=== PATIENT | female | born 1935 | race African-American/Black ===

== ENCOUNTER 2016-10-07 07:52 | Day surgery (SDC) | payer OTHER ==
[~2016-10-07 07:52] MED LIST: ACET650S25 PO; ASPI-518 PO; COR3 PO; KDUR20 PO; LEVO75TA PO
[2016-10-07] MEDS ORDERED: MIDAZOLAM HCL 2 MG/2 ML VIAL ONE ×2 (10:56→11:26)
[2016-10-07] MEDS ORDERED: LIDOCAINE HCL 1% 20ML VIAL (Pyxis) INJ ONE (10:56)
[2016-10-07] MEDS ORDERED: FENTANYL CITRATE/PF 50MCG/ML 2ML VIAL ONE (10:57)
[2016-10-07] MEDS ORDERED: IODIXANOL 320MG/ML 100 ML BOTTLE IV ONE (10:57)
[2016-10-07] MEDS ORDERED: HEPARIN SODIUM 1,000 UNIT/1ML VIAL IV ONE ×2 (11:19→11:49)
[2016-10-07] MEDS ORDERED: HYDROMORPHONE HCL/PF 2MG/ML (OR) ONE (11:30)
[2016-10-07] MEDS ORDERED: PROTAMINE SULFATE 10MG/ML VIAL 5ML IV ONE (12:03)
[2016-10-07] MEDS ORDERED: SACU1TAB PO (12:04)
[2016-10-07] MEDS ORDERED: FURO-151 PO (12:04)
[2016-10-07] MEDS ORDERED: SODIUM CHLORIDE 0.45% 1,000 ML IV ONE (12:15)
== END 2016-10-07 17:55 | disposition home or self-care (01) ==
LOC: CCL 07:52
PROVIDERS: ATTEND Specialist
DX: I25.10 Atherosclerotic heart disease of native coronary artery without angina pectoris (principal); I13.0 Hypertensive heart and chronic kidney disease with heart failure and stage 1 through stage 4 chronic kidney disease, or unspecified chronic kidney disease; E11.22 Type 2 diabetes mellitus with diabetic chronic kidney disease; E03.9 Hypothyroidism, unspecified; I27.2 Other secondary pulmonary hypertension; I50.9 Heart failure, unspecified; I42.9 Cardiomyopathy, unspecified; N18.9 Chronic kidney disease, unspecified; Z79.82 Long term (current) use of aspirin
CPT/HCPCS: 93458; 99152; 99153; C1726; C1760; C1769; C1887; C1893; J1170; J1644; J2250; J2720; J3010; J3490; Q9967

== ENCOUNTER 2018-02-14 20:41 | Inpatient (IN) | payer OTHER ==
[~2018-02-14] VITALS: Ht 167.6 cm; Wt 72.1 kg
[~2018-02-14 20:41] MED LIST changes: +FURO-151 PO; +SACU1TAB PO
[2018-02-14] MEDS ORDERED: NITROGLYCERIN OINT 1GM/INCH UDPKT TD ONE (22:45)
[2018-02-14] MEDS ORDERED: ASPIRIN 81MG TABLET PO ONE (22:45)
[2018-02-14] MEDS ORDERED: FUROSEMIDE 40MG/4ML VIAL IV ONE (22:45)
[2018-02-14 23:36] LABS: BASOPHILS % 0.6 % (0.0-2.0); EOSINOPHILS % 3.6 % (0.0-5.0); HEMATOCRIT. 34.7 % (36.0-48.0); HEMOGLOBIN. 11.6 g/dL (12.0-16.0); MEAN CORPUSCULAR HEMOGLOBIN 31.6 pg (28.0-32.0); MEAN CORPUSCULAR VOLUME 94.3 fL (81.0-99.0); MEAN PLATELET VOLUME 9.4 fl (7.4-10.4); MONOCYTES % 14.6 % (2.0-8.0); NEUTROPHILS % 49.2 % (40.0-76.0); PLATELET 162 x1000/uL (130-400); RED BLOOD CELL COUNT 3.68 mill/uL (4.2-5.4); RED CELL DISTRIBUTION WIDTH 14.8 % (11.6-14.6)
[2018-02-14 23:40] LABS: CHLORIDE 106 mEq/L (98-107)
[2018-02-14 23:47] LABS: INR 1.1; PARTIAL THROMBOPLASTIN TIME 27.1 sec (23.4-31.0); PROTHROMBIN TIME 11.2 sec (9.1-11.1)
[2018-02-15] MEDS: HYDROCODONE/ACETAMINOPHEN 5/325MG TABLET PO PRN ×2 (10:41→22:13)
[2018-02-15] MEDS ORDERED: ENOXAPARIN 40MG/0.4ML SYR SUBCUT SCH (11:30)
[2018-02-15] MEDS: FUROSEMIDE 40MG/4ML VIAL IVP SCH ×3 (11:30→18:58)
[2018-02-15] MEDS ORDERED: ONDANSETRON HCL 4MG/2ML INJ IV PRN (11:30)
[2018-02-15] MEDS: ENOXAPARIN 30MG/0.3ML SYR SUBCUT SCH (13:25)
[2018-02-15] MEDS ORDERED: DEXTROSE 50% WATER 50ML SYRINGE IV PRN (14:30)
[2018-02-15 16:00] VITALS: BP 108/62
[2018-02-15] MEDS ORDERED: IPRATROPIUM/ALBUTEROL 0.5-3(2.5)MG/3ML NEB HHN ONE (16:30)
[2018-02-15 16:57] LABS: BASOPHILS % 0.5 % (0.0-2.0); HEMATOCRIT. 35.4 % (36.0-48.0); HEMOGLOBIN. 11.6 g/dL (12.0-16.0); LYMPHOCYTES % 26.2 % (20.0-50.0); MEAN CORPUSCULAR HEMOGLOBIN 31.4 pg (28.0-32.0); MEAN CORPUSCULAR VOLUME 95.5 fL (81.0-99.0); MEAN PLATELET VOLUME 9.7 fl (7.4-10.4); MONOCYTES % 11.7 % (2.0-8.0); NEUTROPHILS % 57.6 % (40.0-76.0); PLATELET 161 x1000/uL (130-400); RED BLOOD CELL COUNT 3.71 mill/uL (4.2-5.4)
[2018-02-15 17:19] LABS: CHLORIDE 107 mEq/L (98-107)
[2018-02-15] MEDS: BLOOD SUGAR DIAGNOSTIC STRIP TEST SCH ×2 (17:40→21:18)
[2018-02-15 18:02] LABS: CREATINE KINASE 147 IU/L (26-192)
[2018-02-15] MEDS: INSULIN LISPRO 100 UNITS/ML SUBCUT SCH ×2 (18:10→21:57)
[2018-02-15 18:32] VITALS: BP 127/77
[2018-02-15] MEDS: METHYLPREDNISOLONE SOD SUCC 125 MG/2 ML VIAL IV SCH ×2 (18:56→22:13)
[2018-02-15] MEDS ORDERED: LORA1TAB PO (19:47)
[2018-02-15] MEDS ORDERED: SACU1TAB7 PO (19:55)
[2018-02-15 20:00] VITALS: BP 124/67
[2018-02-15] MEDS ORDERED: MEDICATION NOT ON FORMULARY EA (Lorazepam 1 MG) PO PRN (20:00)
[2018-02-15] MEDS: IPRATROPIUM/ALBUTEROL 0.5-3(2.5)MG/3ML NEB HHN SCH (21:41)
[2018-02-15 23:11] LABS: CREATINE KINASE 104 IU/L (26-192)
[2018-02-15 23:12] LABS: CREATINE KINASE MB FRACTION 1.1 ng/mL (0.5-3.6)
[2018-02-16] VITALS: BP 104/64
[2018-02-16] MEDS ORDERED: NITR0.4T49 SL (00:25)
[2018-02-16 04:00] VITALS: BP 107/69
[2018-02-16] MEDS: IPRATROPIUM/ALBUTEROL 0.5-3(2.5)MG/3ML NEB HHN SCH ×6 (04:33→23:44)
[2018-02-16] MEDS: BLOOD SUGAR DIAGNOSTIC STRIP TEST SCH ×4 (06:00→21:11)
[2018-02-16] MEDS: METHYLPREDNISOLONE SOD SUCC 125 MG/2 ML VIAL IV SCH ×3 (06:00→22:06)
[2018-02-16 07:21] LABS: BASOPHILS % 0.2 % (0.0-2.0); HEMATOCRIT. 34.1 % (36.0-48.0); HEMOGLOBIN. 11.3 g/dL (12.0-16.0); LYMPHOCYTES % 11.5 % (20.0-50.0); MEAN CORPUSCULAR HEMOGLOBIN 31.5 pg (28.0-32.0); MEAN CORPUSCULAR VOLUME 94.8 fL (81.0-99.0); MEAN PLATELET VOLUME 9.6 fl (7.4-10.4); NEUTROPHILS % 86.3 % (40.0-76.0); PLATELET 150 x1000/uL (130-400); RED CELL DISTRIBUTION WIDTH 15.1 % (11.6-14.6)
[2018-02-16 08:00] VITALS: BP 108/74
[2018-02-16] MEDS: AMLODIPINE 2.5MG TABLET PO SCH (09:00)
[2018-02-16] MEDS: ENOXAPARIN 30MG/0.3ML SYR SUBCUT SCH (09:00)
[2018-02-16] MEDS: FUROSEMIDE 40MG/4ML VIAL IVP SCH ×2 (09:33→16:10)
[2018-02-16] MEDS: ASPIRIN 81MG TABLET PO SCH (09:33)
[2018-02-16] MEDS: LEVOTHYROXINE SODIUM 75MCG TABLET PO SCH (09:33)
[2018-02-16] MEDS: INSULIN LISPRO 100 UNITS/ML SUBCUT SCH ×4 (09:58→22:07)
[2018-02-16] MEDS: ACETAMINOPHEN 325MG TABLET PO PRN (11:55)
[2018-02-16 12:00] VITALS: BP 100/64
[2018-02-16 16:00] VITALS: BP 119/72
[2018-02-16 20:00] VITALS: BP 110/61
[2018-02-16] MEDS: HYDROCODONE/ACETAMINOPHEN 5/325MG TABLET PO PRN (22:15)
[2018-02-17] VITALS: BP 125/75
[2018-02-17 04:00] VITALS: BP 125/78
[2018-02-17] MEDS: IPRATROPIUM/ALBUTEROL 0.5-3(2.5)MG/3ML NEB HHN SCH ×6 (04:02→23:02)
[2018-02-17] MEDS: ACETAMINOPHEN 325MG TABLET PO PRN (05:34)
[2018-02-17] MEDS: METHYLPREDNISOLONE SOD SUCC 125 MG/2 ML VIAL IV SCH ×3 (06:23→21:49)
[2018-02-17] MEDS: BLOOD SUGAR DIAGNOSTIC STRIP TEST SCH ×4 (06:24→21:40)
[2018-02-17 07:36] LABS: HEMOGLOBIN. 11.4 g/dL (12.0-16.0); MEAN CORPUSCULAR HEMOGLOBIN 31.7 pg (28.0-32.0); MEAN CORPUSCULAR VOLUME 94.8 fL (81.0-99.0); MEAN PLATELET VOLUME 11.1 fl (7.4-10.4); RED BLOOD CELL COUNT 3.59 mill/uL (4.2-5.4)
[2018-02-17 08:00] VITALS: BP 112/62
[2018-02-17 08:29] LABS: CHLORIDE 102 mEq/L (98-107)
[2018-02-17 08:40] LABS: PHOSPHORUS 4.2 mg/dL (2.5-4.9)
[2018-02-17] MEDS: LORAZEPAM 1MG TABLET PO PRN (08:44)
[2018-02-17] MEDS: LEVOTHYROXINE SODIUM 75MCG TABLET PO SCH (08:49)
[2018-02-17] MEDS: FUROSEMIDE 40MG/4ML VIAL IVP SCH ×2 (08:49→16:45)
[2018-02-17] MEDS: ASPIRIN 81MG TABLET PO SCH (08:49)
[2018-02-17] MEDS: ENOXAPARIN 30MG/0.3ML SYR SUBCUT SCH (09:00)
[2018-02-17] MEDS: AMLODIPINE 2.5MG TABLET PO SCH (09:00)
[2018-02-17] MEDS: INSULIN LISPRO 100 UNITS/ML SUBCUT SCH ×4 (09:06→21:49)
[2018-02-17 12:00] VITALS: BP 124/65
[2018-02-17 12:01] LABS: PLATELET ESTIMATE SLIGHTLY DECREASED
[2018-02-17 12:02] LABS: PLATELET 127 x1000/uL (130-400)
[2018-02-17 16:00] VITALS: BP 127/74
[2018-02-17 20:00] VITALS: BP 141/72
[2018-02-17] MEDS: HYDROCODONE/ACETAMINOPHEN 5/325MG TABLET PO PRN (22:06)
[2018-02-18] VITALS: BP 114/66
[2018-02-18] MEDS: IPRATROPIUM/ALBUTEROL 0.5-3(2.5)MG/3ML NEB HHN SCH ×6 (03:04→23:03)
[2018-02-18 04:00] VITALS: BP 125/67
[2018-02-18] MEDS: METHYLPREDNISOLONE SOD SUCC 125 MG/2 ML VIAL IV SCH ×3 (05:32→21:31)
[2018-02-18] MEDS: BLOOD SUGAR DIAGNOSTIC STRIP TEST SCH ×4 (05:32→20:43)
[2018-02-18] MEDS: ACETAMINOPHEN 325MG TABLET PO PRN (05:42)
[2018-02-18 07:36] LABS: HEMATOCRIT. 33.9 % (36.0-48.0); HEMOGLOBIN. 11.1 g/dL (12.0-16.0); MEAN CORPUSCULAR HEMOGLOBIN 30.8 pg (28.0-32.0); MEAN PLATELET VOLUME 10.3 fl (7.4-10.4); PLATELET 170 x1000/uL (130-400); RED CELL DISTRIBUTION WIDTH 14.8 % (11.6-14.6)
[2018-02-18 08:00] VITALS: BP 122/70
[2018-02-18] MEDS: INSULIN LISPRO 100 UNITS/ML SUBCUT SCH ×4 (08:10→21:31)
[2018-02-18] MEDS: AMLODIPINE 2.5MG TABLET PO SCH (09:00)
[2018-02-18] MEDS: ENOXAPARIN 30MG/0.3ML SYR SUBCUT SCH (09:00)
[2018-02-18 09:11] LABS: PHOSPHORUS 4.2 mg/dL (2.5-4.9)
[2018-02-18] MEDS: ASPIRIN 81MG TABLET PO SCH (09:23)
[2018-02-18] MEDS: FUROSEMIDE 40MG/4ML VIAL IVP SCH ×2 (09:23→18:08)
[2018-02-18] MEDS: LEVOTHYROXINE SODIUM 75MCG TABLET PO SCH (09:29)
[2018-02-18 11:34] LABS: PLATELET ESTIMATE NORMAL
[2018-02-18] MEDS ORDERED: FUROSEMIDE 40MG/4ML VIAL IVP NR (11:45)
[2018-02-18 12:00] VITALS: BP 125/75
[2018-02-18 16:00] VITALS: BP 126/70
[2018-02-18 20:00] VITALS: BP 124/76
[2018-02-18] MEDS: HYDROCODONE/ACETAMINOPHEN 5/325MG TABLET PO PRN (22:59)
[2018-02-19] VITALS: BP 126/81
[2018-02-19] MEDS: IPRATROPIUM/ALBUTEROL 0.5-3(2.5)MG/3ML NEB HHN SCH ×4 (01:56→21:30)
[2018-02-19 04:00] VITALS: BP 107/71
[2018-02-19 04:45] VITALS: BP 125/75
[2018-02-19] MEDS: LORAZEPAM 1MG TABLET PO PRN ×2 (04:46→09:17)
[2018-02-19] MEDS: METHYLPREDNISOLONE SOD SUCC 125 MG/2 ML VIAL IV SCH ×3 (05:25→21:33)
[2018-02-19] MEDS: BLOOD SUGAR DIAGNOSTIC STRIP TEST SCH ×4 (06:55→21:33)
[2018-02-19 08:00] VITALS: BP_SYST 131; BP_SYST 2; BP_DIAS 69; BP_DIAS 81
[2018-02-19] MEDS: INSULIN LISPRO 100 UNITS/ML SUBCUT SCH ×4 (08:10→21:00)
[2018-02-19] MEDS: AMLODIPINE 2.5MG TABLET PO SCH (09:00)
[2018-02-19] MEDS: ENOXAPARIN 30MG/0.3ML SYR SUBCUT SCH (09:00)
[2018-02-19] MEDS: LEVOTHYROXINE SODIUM 75MCG TABLET PO SCH (09:17)
[2018-02-19] MEDS: FUROSEMIDE 40MG/4ML VIAL IVP SCH ×2 (09:17→16:49)
[2018-02-19] MEDS: HYDROCODONE/ACETAMINOPHEN 5/325MG TABLET PO PRN (09:18)
[2018-02-19] MEDS: ASPIRIN 81MG TABLET PO SCH (09:19)
[2018-02-19 09:49] LABS: HEMATOCRIT. 34.9 % (36.0-48.0); HEMOGLOBIN. 11.3 g/dL (12.0-16.0); MEAN CORPUSCULAR HEMOGLOBIN 30.3 pg (28.0-32.0); MEAN CORPUSCULAR VOLUME 93.7 fL (81.0-99.0); MEAN PLATELET VOLUME 9.8 fl (7.4-10.4); PLATELET 150 x1000/uL (130-400); RED BLOOD CELL COUNT 3.73 mill/uL (4.2-5.4)
[2018-02-19 10:28] LABS: PHOSPHORUS 3.9 mg/dL (2.5-4.9)
[2018-02-19 10:45] LABS: PLATELET ESTIMATE NORMAL
[2018-02-19 16:00] VITALS: BP 130/71
[2018-02-19 20:00] VITALS: BP 115/66
[2018-02-20] VITALS: BP 118/69
[2018-02-20] MEDS: IPRATROPIUM/ALBUTEROL 0.5-3(2.5)MG/3ML NEB HHN SCH ×4 (01:25→21:20)
[2018-02-20] MEDS: LORAZEPAM 1MG TABLET PO PRN (01:32)
[2018-02-20 04:00] VITALS: BP 142/92
[2018-02-20 05:47] LABS: HEMATOCRIT. 34.3 % (36.0-48.0); HEMOGLOBIN. 11.5 g/dL (12.0-16.0); MEAN CORPUSCULAR HEMOGLOBIN 31.6 pg (28.0-32.0); MEAN CORPUSCULAR VOLUME 93.7 fL (81.0-99.0); PLATELET 148 x1000/uL (130-400); RED BLOOD CELL COUNT 3.66 mill/uL (4.2-5.4)
[2018-02-20] MEDS: METHYLPREDNISOLONE SOD SUCC 125 MG/2 ML VIAL IV SCH ×3 (06:03→21:33)
[2018-02-20] MEDS: BLOOD SUGAR DIAGNOSTIC STRIP TEST SCH ×4 (07:20→21:34)
[2018-02-20] MEDS: INSULIN LISPRO 100 UNITS/ML SUBCUT SCH ×4 (07:46→21:34)
[2018-02-20 08:00] VITALS: BP 113/72
[2018-02-20] MEDS: ENOXAPARIN 30MG/0.3ML SYR SUBCUT SCH (08:53)
[2018-02-20] MEDS: ASPIRIN 81MG TABLET PO SCH (08:53)
[2018-02-20] MEDS: FUROSEMIDE 40MG/4ML VIAL IVP SCH ×2 (08:54→16:39)
[2018-02-20] MEDS: AMLODIPINE 2.5MG TABLET PO SCH (08:54)
[2018-02-20] MEDS: LEVOTHYROXINE SODIUM 75MCG TABLET PO SCH (08:54)
[2018-02-20 11:36] LABS: PLATELET ESTIMATE NORMAL
[2018-02-20 12:00] VITALS: BP 126/82
[2018-02-20 16:00] VITALS: BP 129/77
[2018-02-20] MEDS: ACETAMINOPHEN 325MG TABLET PO PRN (16:39)
[2018-02-20 20:00] VITALS: BP 122/67
[2018-02-21] VITALS (7 sets, daily range): BP systolic 105–155; BP diastolic 59–74
[2018-02-21] MEDS ORDERED: LORAZEPAM 1MG TABLET PO PRN (00:45)
[2018-02-21] MEDS: IPRATROPIUM/ALBUTEROL 0.5-3(2.5)MG/3ML NEB HHN SCH ×6 (02:13→21:15)
[2018-02-21] MEDS: METHYLPREDNISOLONE SOD SUCC 125 MG/2 ML VIAL IV SCH ×2 (06:13→14:10)
[2018-02-21] MEDS: BLOOD SUGAR DIAGNOSTIC STRIP TEST SCH ×4 (06:59→21:10)
[2018-02-21] MEDS: INSULIN LISPRO 100 UNITS/ML SUBCUT SCH ×4 (08:10→21:11)
[2018-02-21 08:19] LABS: HEMATOCRIT. 35.2 % (36.0-48.0); HEMOGLOBIN. 11.7 g/dL (12.0-16.0); MEAN CORPUSCULAR VOLUME 93.3 fL (81.0-99.0); MEAN PLATELET VOLUME 10.7 fl (7.4-10.4); PLATELET 149 x1000/uL (130-400); RED BLOOD CELL COUNT 3.78 mill/uL (4.2-5.4); RED CELL DISTRIBUTION WIDTH 14.8 % (11.6-14.6)
[2018-02-21] MEDS: ASPIRIN 81MG TABLET PO SCH (08:39)
[2018-02-21] MEDS: FUROSEMIDE 40MG/4ML VIAL IVP SCH ×2 (08:39→17:03)
[2018-02-21] MEDS: AMLODIPINE 2.5MG TABLET PO SCH ×2 (08:41→08:52)
[2018-02-21] MEDS: LEVOTHYROXINE SODIUM 75MCG TABLET PO SCH (08:41)
[2018-02-21] MEDS: ENOXAPARIN 30MG/0.3ML SYR SUBCUT SCH ×2 (08:41→08:53)
[2018-02-21 10:19] LABS: PLATELET ESTIMATE NORMAL
[2018-02-21] MEDS: ACETAMINOPHEN 325MG TABLET PO PRN (20:23)
[2018-02-21] MEDS ORDERED: GUAIFENESIN-DM 200MG-20MG/10ML UDC PO PRN (21:45)
[2018-02-22] MEDS: FUROSEMIDE 40MG/4ML VIAL IVP SCH ×3 (00:51→17:30)
[2018-02-22] MEDS: IPRATROPIUM/ALBUTEROL 0.5-3(2.5)MG/3ML NEB HHN SCH ×6 (01:14→20:22)
[2018-02-22] MEDS: LORAZEPAM 1MG TABLET PO PRN ×2 (01:22→18:29)
[2018-02-22 04:00] VITALS: BP 128/74
[2018-02-22] MEDS: METHYLPREDNISOLONE SOD SUCC 125 MG/2 ML VIAL IV SCH ×2 (05:59→17:31)
[2018-02-22] MEDS: BLOOD SUGAR DIAGNOSTIC STRIP TEST SCH ×4 (06:45→21:15)
[2018-02-22 07:28] LABS: BASOPHILS % 0.1 % (0.0-2.0); HEMATOCRIT. 35.2 % (36.0-48.0); HEMOGLOBIN. 11.7 g/dL (12.0-16.0); LYMPHOCYTES % 8.9 % (20.0-50.0); MEAN CORPUSCULAR VOLUME 93.1 fL (81.0-99.0); MEAN PLATELET VOLUME 9.8 fl (7.4-10.4); MONOCYTES % 11.5 % (2.0-8.0); NEUTROPHILS % 79.5 % (40.0-76.0); PLATELET 152 x1000/uL (130-400); RED BLOOD CELL COUNT 3.77 mill/uL (4.2-5.4); RED CELL DISTRIBUTION WIDTH 14.4 % (11.6-14.6)
[2018-02-22 08:00] VITALS: BP 125/63
[2018-02-22] MEDS: INSULIN LISPRO 100 UNITS/ML SUBCUT SCH ×4 (08:10→21:00)
[2018-02-22] MEDS: ASPIRIN 81MG TABLET PO SCH (08:36)
[2018-02-22] MEDS: LEVOTHYROXINE SODIUM 75MCG TABLET PO SCH (08:36)
[2018-02-22] MEDS: AMLODIPINE 2.5MG TABLET PO SCH (08:39)
[2018-02-22] MEDS: ENOXAPARIN 30MG/0.3ML SYR SUBCUT SCH (08:39)
[2018-02-22 11:37] LABS: BG DEOXYHEMOGLOBIN 3.2 % (0.0-5.0); BG FRACTION INSPIRED OXYGEN 21; BG HCO3 ACT 25.8 mmol/L (22.0-26.0); BG METHEMOGLOBIN 0.1 % (0.0-1.5); BG OXYGEN SATURATION 96.8 % (92.0-98.5); BG OXYHEMOGLOBIN 95.7 % (94.0-97.0); BG PCO2 37.6 mmHg (35.0-45.0); BG PH 7.455 (7.350-7.450); BG PO2 81.2 mmHg (75.0-100.0); BG SAMPLE SITE RIGHT RADIAL; BG TOTAL HEMOGLOBIN 12.4 g/dL (12.0-18.0); BG VENT MODE ROOM AIR
[2018-02-22 12:00] VITALS: BP 137/78
[2018-02-22 15:22] VITALS: BP 129/63
[2018-02-22 16:00] VITALS: BP 129/63
[2018-02-22 20:00] VITALS: BP 133/82
[2018-02-23] VITALS: BP 121/53
[2018-02-23] MEDS: FUROSEMIDE 40MG/4ML VIAL IVP SCH ×2 (00:30→10:02)
[2018-02-23] MEDS: IPRATROPIUM/ALBUTEROL 0.5-3(2.5)MG/3ML NEB HHN SCH ×4 (00:38→12:46)
[2018-02-23 04:00] VITALS: BP 124/73
[2018-02-23] MEDS: METHYLPREDNISOLONE SOD SUCC 125 MG/2 ML VIAL IV SCH (05:48)
[2018-02-23] MEDS: BLOOD SUGAR DIAGNOSTIC STRIP TEST SCH (06:41)
[2018-02-23 06:57] LABS: BASOPHILS % 0.1 % (0.0-2.0); HEMATOCRIT. 35.5 % (36.0-48.0); HEMOGLOBIN. 11.8 g/dL (12.0-16.0); LYMPHOCYTES % 7.4 % (20.0-50.0); MEAN PLATELET VOLUME 9.7 fl (7.4-10.4); MONOCYTES % 11.3 % (2.0-8.0); NEUTROPHILS % 81.2 % (40.0-76.0); PLATELET 174 x1000/uL (130-400); RED BLOOD CELL COUNT 3.82 mill/uL (4.2-5.4); RED CELL DISTRIBUTION WIDTH 14.8 % (11.6-14.6)
[2018-02-23 07:21] LABS: PHOSPHORUS 3.4 mg/dL (2.5-4.9)
[2018-02-23 08:00] VITALS: BP 117/55
[2018-02-23] MEDS: INSULIN LISPRO 100 UNITS/ML SUBCUT SCH (08:10)
[2018-02-23] MEDS: LEVOTHYROXINE SODIUM 75MCG TABLET PO SCH (10:02)
[2018-02-23] MEDS: AMLODIPINE 2.5MG TABLET PO SCH (10:02)
[2018-02-23] MEDS: ENOXAPARIN 30MG/0.3ML SYR SUBCUT SCH (10:03)
[2018-02-23] MEDS: ASPIRIN 81MG TABLET PO SCH (10:03)
[2018-02-23] MEDS: ACETAMINOPHEN 325MG TABLET PO PRN (10:56)
[2018-02-23] MEDS: LORAZEPAM 1MG TABLET PO PRN (11:38)
[2018-02-23 14:51] VITALS: BP 120/70
== END 2018-02-23 16:02 | disposition home health service (06) | DRG 291 ==
LOC: ER 20:41 → 7WST 02-15 00:32 → EDBEDREQDT 02-15 00:42 → EDBEDREQTM 02-15 00:42 → EDBEDREQ 02-15 00:42 → ENRESERV 02-15 11:43 → 7WST 02-15 15:46
PROVIDERS: ADMIT Internal Medicine; ATTEND Internal Medicine
DX: I13.0 Hypertensive heart and chronic kidney disease with heart failure and stage 1 through stage 4 chronic kidney disease, or unspecified chronic kidney disease (principal); J96.01 Acute respiratory failure with hypoxia; I50.23 Acute on chronic systolic (congestive) heart failure; J44.1 Chronic obstructive pulmonary disease with (acute) exacerbation; E87.1 Hypo-osmolality and hyponatremia; E44.1 Mild protein-calorie malnutrition; N17.9 Acute kidney failure, unspecified; E03.9 Hypothyroidism, unspecified; N18.3 Chronic kidney disease, stage 3 (moderate); D64.9 Anemia, unspecified; E11.22 Type 2 diabetes mellitus with diabetic chronic kidney disease; E78.5 Hyperlipidemia, unspecified; I25.10 Atherosclerotic heart disease of native coronary artery without angina pectoris; I25.5 Ischemic cardiomyopathy; I34.0 Nonrheumatic mitral (valve) insufficiency; I27.20 Pulmonary hypertension, unspecified; Z82.49 Family history of ischemic heart disease and other diseases of the circulatory system; Z87.891 Personal history of nicotine dependence; Z79.82 Long term (current) use of aspirin; Z79.899 Other long term (current) drug therapy; Z68.25 Body mass index [BMI] 25.0-25.9, adult
CPT/HCPCS: 36415; 36600; 71045; 71046; 71250; 80048; 82375; 82550; 82553; 82805; 82962; 83735; 83880; 84100; 84484; 93005; 93970; 94640; 96374; 97116; 97162; 97530; 99285; J1650; J1815; J1940; J2930; J7620

== ENCOUNTER 2018-12-05 13:03 | Inpatient (IN) | payer OTHER ==
[~2018-12-05] VITALS: Ht 167.6 cm; Wt 71.7 kg
[~2018-12-05 13:03] MED LIST changes: -ACET650S25 PO; +ALBU18HF2 IH; +AMI2 PO; +APIX2.5T MT; -COR3 PO; +LORA1TAB PO; +NITR0.4T49 SL; -SACU1TAB PO
[2018-12-05 15:42] LABS: BASOPHILS % 0.4 % (0.0-2.0); EOSINOPHILS % 1.6 % (0.0-5.0); HEMATOCRIT. 34.4 % (36.0-48.0); HEMOGLOBIN. 11.6 g/dL (12.0-16.0); MEAN CORPUSCULAR HEMOGLOBIN 31.5 pg (28.0-32.0); MEAN PLATELET VOLUME 9.6 fl (7.4-10.4); MONOCYTES % 14.8 % (2.0-8.0); NEUTROPHILS % 59.2 % (40.0-76.0); PLATELET 144 x1000/uL (130-400); RED BLOOD CELL COUNT 3.66 mill/uL (4.2-5.4); RED CELL DISTRIBUTION WIDTH 15.7 % (11.6-14.6)
[2018-12-05 15:44] LABS: CHLORIDE 103 mEq/L (98-107)
[2018-12-05 15:47] LABS: INR 1.2; PARTIAL THROMBOPLASTIN TIME 32.2 sec (23.4-31.0); PROTHROMBIN TIME 12.2 sec (9.6-11.0)
[2018-12-05] MEDS ORDERED: DOBUTAMINE 250MG PREMIX 250 ML IV SCH (16:00)
[2018-12-05] MEDS: DOBUTAMINE 250MG PREMIX 250 ML IV SCH ×2 (16:45→16:48)
[2018-12-05] MEDS ORDERED: FUROSEMIDE 40MG/4ML VIAL IVP ONE (18:00)
[2018-12-06] VITALS (11 sets, daily range): BP systolic 102–128; BP diastolic 39–73
[2018-12-06] MEDS ORDERED: MORPHINE SULFATE 2 MG/ML CPJ (NOT FOR IM USE) IV PRN (01:30)
[2018-12-06] MEDS ORDERED: SACU1TAB7 MT (03:12)
[2018-12-06] MEDS: DOBUTAMINE 250MG PREMIX 250 ML IV SCH ×3 (03:39→22:54)
[2018-12-06] MEDS ORDERED: METO2.5T14 MT (05:23)
[2018-12-06] MEDS ORDERED: ONDANSETRON HCL 4MG/2ML INJ IV PRN (05:30)
[2018-12-06] MEDS ORDERED: POTASSIUM CHLORIDE 20MEQ TABLET SR PO SCH (05:30)
[2018-12-06] MEDS: ACETAMINOPHEN 325MG TABLET PO PRN ×2 (06:12→19:45)
[2018-12-06 06:54] LABS: HEMOGLOBIN. 9.9 g/dL (12.0-16.0); MEAN CORPUSCULAR HEMOGLOBIN 30.6 pg (28.0-32.0); MEAN PLATELET VOLUME 9.6 fl (7.4-10.4); PLATELET 140 x1000/uL (130-400); RED BLOOD CELL COUNT 3.23 mill/uL (4.2-5.4); RED CELL DISTRIBUTION WIDTH 15.2 % (11.6-14.6)
[2018-12-06] MEDS: ENOXAPARIN 30MG/0.3ML SYR SUBCUT SCH (08:19)
[2018-12-06 13:23] LABS: PLATELET ESTIMATE NORMAL
[2018-12-06] MEDS ORDERED: POTASSIUM CHLORIDE INJ 40 MEQ in DEXT 5% WATER 250 ML IV NR (13:30)
[2018-12-06] MEDS: MAGNESIUM OXIDE 400MG TABLET PO SCH (14:33)
[2018-12-06] MEDS: LEVOTHYROXINE SODIUM 75MCG TABLET PO SCH (14:33)
[2018-12-06] MEDS: POTASSIUM CHLORIDE 20MEQ TABLET SR PO SCH ×2 (14:35→17:48)
[2018-12-06] MEDS: FUROSEMIDE 100MG/10ML VIAL IVP SCH (15:38)
[2018-12-07] VITALS (8 sets, daily range): BP systolic 121–141; BP diastolic 56–71
[2018-12-07] MEDS: FUROSEMIDE 100MG/10ML VIAL IVP SCH ×2 (00:14→17:34)
[2018-12-07] MEDS: ACETAMINOPHEN 325MG TABLET PO PRN ×2 (01:00→09:47)
[2018-12-07] MEDS: DOBUTAMINE 250MG PREMIX 250 ML IV SCH ×2 (05:29→19:32)
[2018-12-07] MEDS: LEVOTHYROXINE SODIUM 75MCG TABLET PO SCH (05:51)
[2018-12-07 06:45] LABS: HEMATOCRIT. 30.4 % (36.0-48.0); HEMOGLOBIN. 10.1 g/dL (12.0-16.0); MEAN CORPUSCULAR HEMOGLOBIN 30.9 pg (28.0-32.0); MEAN CORPUSCULAR VOLUME 92.9 fL (81.0-99.0); MEAN PLATELET VOLUME 9.9 fl (7.4-10.4); PLATELET 128 x1000/uL (130-400); RED BLOOD CELL COUNT 3.27 mill/uL (4.2-5.4); RED CELL DISTRIBUTION WIDTH 15.5 % (11.6-14.6)
[2018-12-07 07:15] LABS: PHOSPHORUS 2.2 mg/dL (2.5-4.9)
[2018-12-07] MEDS: POTASSIUM CHLORIDE 20MEQ TABLET SR PO SCH ×2 (09:46→17:34)
[2018-12-07] MEDS: MAGNESIUM OXIDE 400MG TABLET PO SCH (09:47)
[2018-12-07] MEDS: ZOLPIDEM TARTRATE 5MG TABLET PO PRN ×2 (09:47→20:54)
[2018-12-07] MEDS: ENOXAPARIN 30MG/0.3ML SYR SUBCUT SCH (09:48)
[2018-12-07 11:05] LABS: PLATELET ESTIMATE SLIGHTLY DECREASED
[2018-12-07] MEDS: APIXABAN 2.5 MG TABLET PO SCH (17:34)
[2018-12-08] VITALS (12 sets, daily range): BP systolic 102–143; BP diastolic 45–84
[2018-12-08] MEDS: FUROSEMIDE 100MG/10ML VIAL IVP SCH ×2 (00:19→13:05)
[2018-12-08] MEDS: DOBUTAMINE 250MG PREMIX 250 ML IV SCH ×3 (04:22→17:54)
[2018-12-08] MEDS: LEVOTHYROXINE SODIUM 75MCG TABLET PO SCH (05:30)
[2018-12-08] MEDS: APIXABAN 2.5 MG TABLET PO SCH ×2 (05:30→17:54)
[2018-12-08 07:42] LABS: HEMOGLOBIN. 10.1 g/dL (12.0-16.0); MEAN CORPUSCULAR HEMOGLOBIN 31.1 pg (28.0-32.0); MEAN CORPUSCULAR VOLUME 92.4 fL (81.0-99.0); MEAN PLATELET VOLUME 10.1 fl (7.4-10.4); PLATELET 138 x1000/uL (130-400); RED BLOOD CELL COUNT 3.25 mill/uL (4.2-5.4); RED CELL DISTRIBUTION WIDTH 15.3 % (11.6-14.6)
[2018-12-08 08:21] LABS: PHOSPHORUS 2.6 mg/dL (2.5-4.9)
[2018-12-08] MEDS: MAGNESIUM OXIDE 400MG TABLET PO SCH (08:53)
[2018-12-08] MEDS: POTASSIUM CHLORIDE 20MEQ TABLET SR PO SCH ×2 (08:54→17:54)
[2018-12-08] MEDS ORDERED: PNEUMOCOCCAL 23-VAL P-SAC VAC 0.5 ML IM ONE (11:00)
[2018-12-08 17:14] LABS: PLATELET ESTIMATE NORMAL
[2018-12-08] MEDS ORDERED: METO2.5T14 PO (18:50)
[2018-12-08] MEDS ORDERED: ALBU18HF2 IH (18:50)
[2018-12-08] MEDS ORDERED: POTA10CA42 PO (18:50)
[2018-12-08] MEDS: ACETAMINOPHEN 325MG TABLET PO PRN (21:42)
[2018-12-08] MEDS: ZOLPIDEM TARTRATE 5MG TABLET PO PRN (23:26)
[2018-12-09] VITALS (7 sets, daily range): BP systolic 121–171; BP diastolic 39–71
[2018-12-09] MEDS: FUROSEMIDE 100MG/10ML VIAL IVP SCH (00:15)
[2018-12-09] MEDS: DOBUTAMINE 250MG PREMIX 250 ML IV SCH (00:19)
[2018-12-09] MEDS: APIXABAN 2.5 MG TABLET PO SCH (06:09)
[2018-12-09] MEDS: LEVOTHYROXINE SODIUM 75MCG TABLET PO SCH (06:09)
[2018-12-09 06:58] LABS: HEMATOCRIT. 39.1 % (36.0-48.0); HEMOGLOBIN. 12.8 g/dL (12.0-16.0); MEAN CORPUSCULAR HEMOGLOBIN 30.7 pg (28.0-32.0); MEAN CORPUSCULAR VOLUME 93.4 fL (81.0-99.0); MEAN PLATELET VOLUME 9.7 fl (7.4-10.4); PLATELET 104 x1000/uL (130-400); RED BLOOD CELL COUNT 4.19 mill/uL (4.2-5.4); RED CELL DISTRIBUTION WIDTH 15.5 % (11.6-14.6)
[2018-12-09 07:16] LABS: PHOSPHORUS 2.4 mg/dL (2.5-4.9)
[2018-12-09] MEDS: POTASSIUM CHLORIDE 20MEQ TABLET SR PO SCH (09:00)
[2018-12-09] MEDS: MAGNESIUM OXIDE 400MG TABLET PO SCH (09:05)
[2018-12-09 11:53] LABS: PLATELET ESTIMATE SLIGHTLY DECREASED
== END 2018-12-09 11:49 | disposition home or self-care (01) | DRG 291 ==
LOC: ER 15:19 → EDBEDREQ 17:51 → EDBEDREQTM 17:51 → 3WST 17:52 → EDBEDREQTM 17:56 → EDBEDREQ 17:56 → EDBEDREQSVC 17:56 → ENRESERV 12-06 01:27
PROVIDERS: ADMIT Internal Medicine; ATTEND Internal Medicine
PROC: 05HY33Z Insertion of Infusion Device into Upper Vein, Percutaneous Approach (ICD-10-PCS; principal; 2018-12-07)
PROC: B54NZZA Ultrasonography of Left Upper Extremity Veins, Guidance (ICD-10-PCS; 2018-12-07)
DX: I13.0 Hypertensive heart and chronic kidney disease with heart failure and stage 1 through stage 4 chronic kidney disease, or unspecified chronic kidney disease (principal); I50.23 Acute on chronic systolic (congestive) heart failure; J96.91 Respiratory failure, unspecified with hypoxia; I74.10 Embolism and thrombosis of unspecified parts of aorta; N18.4 Chronic kidney disease, stage 4 (severe); I31.3 Pericardial effusion (noninflammatory); E87.1 Hypo-osmolality and hyponatremia; I25.2 Old myocardial infarction; D72.819 Decreased white blood cell count, unspecified; E87.6 Hypokalemia; I27.20 Pulmonary hypertension, unspecified; I48.0 Paroxysmal atrial fibrillation; I49.1 Atrial premature depolarization; I71.4 Abdominal aortic aneurysm, without rupture; D64.9 Anemia, unspecified; I34.0 Nonrheumatic mitral (valve) insufficiency; E03.9 Hypothyroidism, unspecified; E04.2 Nontoxic multinodular goiter; E83.42 Hypomagnesemia; F41.9 Anxiety disorder, unspecified; I25.10 Atherosclerotic heart disease of native coronary artery without angina pectoris; I25.5 Ischemic cardiomyopathy; I44.0 Atrioventricular block, first degree; K21.9 Gastro-esophageal reflux disease without esophagitis; Z79.01 Long term (current) use of anticoagulants; Z79.899 Other long term (current) drug therapy; Z90.710 Acquired absence of both cervix and uterus; Z90.49 Acquired absence of other specified parts of digestive tract; Z87.891 Personal history of nicotine dependence; Z82.49 Family history of ischemic heart disease and other diseases of the circulatory system; Z88.8 Allergy status to other drugs, medicaments and biological substances
CPT/HCPCS: 36415; 71045; 76536; 76770; 76775; 76937; 80048; 80061; 83735; 83880; 84100; 84443; 84484; 90732; 93005; 93306; 93970; 97162; 99285; C1725; J1250; J1650; J1940; J2270; J3480; J7040; J7060